=== PATIENT | female | born 1945 | race Hispanic/Latino ===

== ENCOUNTER 2017-09-14 13:57 | Emergency (ER) | payer OTHER ==
--- NOTE | 2017-09-14 15:03 | ER ---
Nurse's Notes [facility] Name: Deysi Lundberg Age: 72 yrs Sex: Female : 1945 Arrival Date: 09/14/2017 Time: 14:02 Bed 26 Private MD: Eduardo Bowling Diagnosis: Gastrointestinal hemorrhage, unspecified-upper;Weakness;End stage renal disease;Anemia, unspecified Presentation: 09/14 14:21 Presenting complaint: Patient states: I have been having dark tarry stools since today, tw2 dialysis told me to come over here and have it checked out, dialysis t/th/sat. Transition of care: patient was not received from another setting of care. Onset of symptoms was September 14, 2017. Risk Assessment: Do you want to hurt yourself or someone else? Patient reports no desire to harm self or others. Initial Sepsis Screen: Does the patient meet any 2 criteria? No. Patient's initial sepsis screen is negative. Does the patient have a suspected source of infection? No. Patient's initial sepsis screen is negative. Care prior to arrival: None. 14:21 Method Of Arrival: Wheelchair tw 14:21 Acuity: JOAO 3 tw2 Historical: - Allergies: 14:28 Morphine; tw2 14:28 Codeine; tw2 14:28 vancomycin; tw2 - Home Meds: 14:28 lactulose 20 gram/30 mL Oral soln 30 mL once daily [Active]; esomeprazole magnesium 40 tw2 mg oral cpDR 1 cap 2 times per day [Active]; Renvela 800 mg oral tab 1 tab 3 times per day [Active]; glipizide 2.5 mg Oral tr24 2 tabs once daily [Active]; Flonase 50 mcg/actuation Nasal spsn 1 spray 2 times per day [Active]; midodrine 5 mg oral tab 2 tabs 3 times per day [Active]; sulfamethoxazole-trimethoprim 800-160 mg Oral tab 1 tab every 6 hours [Active]; - PMHx: 14:28 ESRD; Diabetes - NIDDM; tw2 - PSHx: 14:28 dialysis shunt, LEFT upper arm; tw2 - Immunization history:: Adult Immunizations. - Social history:: Smoking status: Patient/guardian denies using tobacco. - Ebola Screening: : Patient denies travel to an Ebola-affected area in the 21 days before illness onset. - Family history:: not pertinent. Screenin:28 Abuse screen: Denies threats or abuse. Nutritional screening: No deficits noted. tw2 Tuberculosis screening: No symptoms or risk factors identified. Fall Risk Secondary diagnosis (15 points) impaired mobility, blindness. Assessment: 14:13 General: Appears in no apparent distress. slender, Behavior is calm, cooperative, tw2 appropriate for age. Pain: Denies pain. Neuro: Level of Consciousness is awake, alert, obeys commands, Oriented to person, place, time, situation. Cardiovascular: Denies chest pain, shortness of breath, Heart tones S1 S2 Capillary refill < 3 seconds. Respiratory: Airway is patent Respiratory effort is even, unlabored, Respiratory pattern is regular, symmetrical, Breath sounds are clear bilaterally. GI: Parent/caregiver reports the patient having black tarry stools. : No signs and/or symptoms were reported regarding the genitourinary system. EENT: Parent/caregiver reports the patient having pt is blind. Derm: Skin is intact, is thin. 14:53 General: Appears in no apparent distress. comfortable, Behavior is calm, cooperative. rv Pain: Denies pain. Neuro: Level of Consciousness is awake, alert, obeys commands, Oriented to person, place, time, situation. Cardiovascular: Capillary refill < 3 seconds. Respiratory: Airway is patent. GI: Parent/caregiver reports the patient having melena. : No signs and/or symptoms were reported regarding the genitourinary system. EENT: No signs and/or symptoms were reported regarding the EENT system. Derm: Skin is intact. 17:12 Reassessment: Patient appears in no apparent distress at this time. Patient and/or rv family updated on plan of care and expected duration. Pain level reassessed. Patient is alert, oriented x 3, equal unlabored respirations, skin warm/dry/pink. PATIENT IS LYING ON BED COMFORTABLE. ABLE TO MOVE BOWEL, SEMI-FORMED, NON-FOUL SMELLING, BROWN IN COLOR. 17:50 Reassessment: Patient appears in no apparent distress at this time. Patient and/or rv family updated on plan of care and expected duration. Pain level reassessed. Patient is alert, oriented x 3, equal unlabored respirations, skin warm/dry/pink. CALLED IN REPORT TO [facility] [place] [facility] [place] IS RELUCTANT TO BE TRANSFERRED [place] [facility] [place]. AWAITING DECISION OF THE FAMILY. Vital Signs: 14:22 BP 130 / 55; Pulse 85; Resp 17; Temp 97.7(TE); Pulse Ox 98% on R/A; Weight 40.82 kg (R);tw2 17:13 BP 125 / 58; Pulse 66; Resp 12; Pulse Ox 97% on R/A; rv 19:02 BP 143 / 53; Pulse 71; Resp 17; Pulse Ox 97% on R/A; rv ED Course: 14:02 Patient arrived in ED. sb2 14:02 Eduardo Bowling MD is Private Physician. sb2 14:10 Patient's name was called from ER lobby. No response. sv 14:14 Griffin Marcial RN is Primary Nurse. mb3 14:15 Isidro Varma MD is Attending Physician. morris 14:22 Triage completed. tw2 14:28 Bed in low position. Side rails up X2. Adult w/ patient. telemetry monitor on. Pulse ox tw2 on. NIBP on. Warm blanket given. 14:28 Arm band placed on. tw2 14:47 Report given to KRISTEN Hartley. tw2 16:09 XRAY Chest (1 view) In Process Unspecified. EDMS 16:41 Dr. Varma initiated transfer with Nila Lundberg at [facility]. eb 17:[address] Nelson and Dr. Herrera with Dr. Varma for patient transfer consulation.eb 19:04 No provider procedures requiring assistance completed. Patient transferred, IV remains rv in place. intact. Administered Medications: 15:30 Drug: ProTONIX 80 mg Route: IVP; Site: right antecubital; rv 17:14 Follow up: Response: No adverse reaction rv 15:30 Drug: ProTONIX 8 mg/hr Route: IV; Rate: 25 ml/hr; Site: right antecubital; rv 17:14 Follow up: Response: No adverse reaction rv 19:01 Follow up: IV Status: Infusion continued upon transfer rv Point of Care Testing: Blood Glucose: 14:54 Blood Glucose: 140 mg/dL; rv Ranges: Outcome: 15:03 ER care complete, transfer ordered by . morris 19:04 Transferred by ground EMS to [facility]. rv 19:04 Condition: stable 19:04 Discharge instructions given to patient, family, Instructed on the need for transfer. 19:05 Patient left the ED. rv Signatures: Dispatcher [employer] Kelsy Farr, RN RN Isidro Morillo MD MD cha Wise, Tara, RN RN tw2 Liane Crockett2 Soni August Mark RN RN mb3 John Elkins RN RN rv
--- NOTE | 2017-09-14 15:03 | EDPHYS ---
Physician Documentation [facility] Name: Deysi Lundberg Age: 72 yrs Sex: Female : 1945 Arrival Date: 09/14/2017 Time: 14:02 Bed 26 Private MD: Eduardo Bowling ED Physician Isidro Varma HPI: 09/14 14:58 This 72 yrs old Female presents to ER via Wheelchair with complaints of morris Black/Tarry Stools. 14:58 The patient presents to the emergency department with rectal bleeding, a small amount. morris Onset: The symptoms/episode began/occurred today. Abdominal pain: none is appreciated. Modifying factors: The symptoms are alleviated by nothing, the symptoms are aggravated by nothing. Associated signs and symptoms: The patient has no apparent associated signs or symptoms. Severity of symptoms: At their worst the symptoms were mild in the emergency department the symptoms are unchanged. The patient has not experienced similar symptoms in the past. Historical: - Allergies: 14:28 Morphine; tw2 14:28 Codeine; tw2 14:28 vancomycin; tw2 - Home Meds: 14:28 lactulose 20 gram/30 mL Oral soln 30 mL once daily [Active]; esomeprazole magnesium 40 tw2 mg oral cpDR 1 cap 2 times per day [Active]; Renvela 800 mg oral tab 1 tab 3 times per day [Active]; glipizide 2.5 mg Oral tr24 2 tabs once daily [Active]; Flonase 50 mcg/actuation Nasal spsn 1 spray 2 times per day [Active]; midodrine 5 mg oral tab 2 tabs 3 times per day [Active]; sulfamethoxazole-trimethoprim 800-160 mg Oral tab 1 tab every 6 hours [Active]; - PMHx: 14:28 ESRD; Diabetes - NIDDM; tw2 - PSHx: 14:28 dialysis shunt, LEFT upper arm; tw2 - Immunization history:: Adult Immunizations. - Social history:: Smoking status: Patient/guardian denies using tobacco. - Ebola Screening: : Patient denies travel to an Ebola-affected area in the 21 days before illness onset. - Family history:: not pertinent. ROS: 14:58 Constitutional: Negative for fever, chills, and weight loss, Eyes: Negative for injury, morris pain, redness, and discharge, ENT: Negative for injury, pain, and discharge, Neck: Negative for injury, pain, and swelling, Cardiovascular: Negative for chest pain, palpitations, and edema, Respiratory: Negative for shortness of breath, cough, wheezing, and pleuritic chest pain, Back: Negative for injury and pain, : Negative for injury, bleeding, discharge, and swelling, MS/Extremity: Negative for injury and deformity, Skin: Negative for injury, rash, and discoloration, Neuro: Negative for headache, weakness, numbness, tingling, and seizure, Psych: Negative for depression, anxiety, suicide ideation, homicidal ideation, and hallucinations, Allergy/Immunology: Negative for hives, rash, and allergies, Endocrine: Negative for neck swelling, polydipsia, polyuria, polyphagia, and marked weight changes. 14:58 Abdomen/GI: Positive for black/tarry stool. Exam: 14:58 Constitutional: This is a well developed, well nourished patient who is awake, alert, morris and in no acute distress. Head/Face: Normocephalic, atraumatic. Eyes: Pupils equal round and reactive to light, extra-ocular motions intact. Lids and lashes normal. Conjunctiva and sclera are non-icteric and not injected. Cornea within normal limits. Periorbital areas with no swelling, redness, or edema. ENT: Nares patent. No nasal discharge, no septal abnormalities noted. Tympanic membranes are normal and external auditory canals are clear. Oropharynx with no redness, swelling, or masses, exudates, or evidence of obstruction, uvula midline. Mucous membranes moist. Neck: Trachea midline, no thyromegaly or masses palpated, and no cervical lymphadenopathy. Supple, full range of motion without nuchal rigidity, or vertebral point tenderness. No Meningismus. Chest/axilla: Normal chest wall appearance and motion. Nontender with no deformity. No lesions are appreciated. Cardiovascular: Regular rate and rhythm with a normal S1 and S2. No gallops, murmurs, or rubs. Normal PMI, no JVD. No pulse deficits. Respiratory: Lungs have equal breath sounds bilaterally, clear to auscultation and percussion. No rales, rhonchi or wheezes noted. No increased work of breathing, no retractions or nasal flaring. Back: No spinal tenderness. No costovertebral tenderness. Full range of motion. Female : Normal external genitalia. Skin: Warm, dry with normal turgor. Normal color with no rashes, no lesions, and no evidence of cellulitis. MS/ Extremity: Pulses equal, no cyanosis. Neurovascular intact. Full, normal range of motion. Neuro: Awake and alert, GCS 15, oriented to person, place, time, and situation. Cranial nerves II-XII grossly intact. Motor strength 5/5 in all extremities. Sensory grossly intact. Cerebellar exam normal. Normal gait. Psych: Awake, alert, with orientation to person, place and time. Behavior, mood, and affect are within normal limits. 14:58 Abdomen/GI: Inspection: bruising, Bowel sounds: normal, Palpation: nontender, Rectal exam: Stool: guaiac positive, black, Liver: no appreciated palpable abnormalities, Hernia: not appreciated. Vital Signs: 14:22 BP 130 / 55; Pulse 85; Resp 17; Temp 97.7(TE); Pulse Ox 98% on R/A; Weight 40.82 kg (R);tw2 17:13 BP 125 / 58; Pulse 66; Resp 12; Pulse Ox 97% on R/A; rv 19:02 BP 143 / 53; Pulse 71; Resp 17; Pulse Ox 97% on R/A; rv MDM: 14:15 Patient medically screened. [facility] 14:58 Data reviewed: vital signs, nurses notes, lab test result(s), EKG, radiologic studies, morris plain films. 09/14 14:58 Order name: Basic Metabolic Panel; Complete Time: 16:27 [facility] 09/14 14:58 Order name: CBC with Diff [facility] 09/14 14:58 Order name: Ckmb; Complete Time: 16:27 [facility] 09/14 14:58 Order name: CPK; Complete Time: 16:27 [facility] 09/14 14:58 Order name: LFT's; Complete Time: 16:27 [facility] 09/14 14:58 Order name: Magnesium; Complete Time: 16:27 [facility] 09/14 14:58 Order name: NT PRO-BNP; Complete Time: 16:27 [facility] 09/14 14:58 Order name: PT-INR; Complete Time: 16:27 [facility] 09/14 14:58 Order name: Ptt, Activated; Complete Time: 16:27 [facility] 09/14 14:58 Order name: Troponin (emerg Dept Use Only); Complete Time: 16:27 [facility] 09/14 14:58 Order name: Lipase; Complete Time: 16:27 [facility] 09/14 14:58 Order name: Type And Screen [facility] 09/14 14:59 Order name: Glucose, Ancillary Testing; Complete Time: 15:19 [facility] 09/14 14:58 Order name: XRAY Chest (1 view) [facility] 09/14 14:58 Order name: EKG; Complete Time: 14:58 [facility] 09/14 14:58 Order name: Cardiac monitoring; Complete Time: 15:35 [facility] 09/14 14:58 Order name: EKG - Nurse/Tech; Complete Time: 15:36 [facility] 09/14 14:58 Order name: IV Saline Lock; Complete Time: 15:36 [facility] 09/14 14:58 Order name: Labs collected and sent; Complete Time: 15:36 [facility] 09/14 14:58 Order name: O2 Per Protocol; Complete Time: 15:36 [facility] 09/14 14:58 Order name: O2 Sat Monitoring; Complete Time: 15:36 [facility] 09/14 14:58 Order name: Urine Dipstick-Ancillary (obtain specimen) [facility] 09/14 15:55 Order name: CBC Smear Scan EDDE Administered Medications: 15:30 Drug: ProTONIX 80 mg Route: IVP; Site: right antecubital; rv 17:14 Follow up: Response: No adverse reaction rv 15:30 Drug: ProTONIX 8 mg/hr Route: IV; Rate: 25 ml/hr; Site: right antecubital; rv 17:14 Follow up: Response: No adverse reaction rv 19:01 Follow up: IV Status: Infusion continued upon transfer rv Point of Care Testing: Blood Glucose: 14:54 Blood Glucose: 140 mg/dL; rv Ranges: Critical Glucose Levels:Adult <50 mg/dl or >400 mg/dl <40 mg/dl or >180 mg/dl Disposition: 09/14/17 15:03 Transfer ordered to [facility]. Diagnosis are Gastrointestinal hemorrhage, unspecified - upper, Weakness, End stage renal disease, Anemia, unspecified. - Reason for transfer: Higher level of care. - Accepting physician is TO TELE . - Condition is Fair. - Problem is new. - Symptoms have improved. Signatures: Dispatcher [employer] EDDE Isidro Varma MD MD cha Wise, Tara RN RN tw2 John Elkins RN RN rv Corrections: (The following items were deleted from the chart) 17:01 15:03 09/14/2017 15:03 Transfer ordered to [facility]. Diagnosis is morris Gastrointestinal hemorrhage, unspecified - upper; Weakness; End stage renal disease. Reason for transfer: Higher level of care. Accepting physician is TO TELE . Condition is Fair. Problem is new. Symptoms have improved. morris 19:05 17:01 09/14/2017 15:03 Transfer ordered to [facility]. Diagnosis is rv Gastrointestinal hemorrhage, unspecified - upper; Weakness; End stage renal disease; Anemia, unspecified. Reason for transfer: Higher level of care. Accepting physician is TO TELE . Condition is Fair. Problem is new. Symptoms have improved. morris
[2017-09-14] MEDS ORDERED: PANTOPRAZOLE 40 MG INJ ONE (15:32)
[2017-09-14] MEDS ORDERED: NA CHLORIDE 0.9% 250 ML ONE (15:32)
[2017-09-14 15:37] LABS: Absolute Lymphocytes (CBC) 0.9 K/uL (0.7-4.9); Absolute Monocytes 0.3 K/uL (0.1-1.3); Basophils % 0.8 % (0-1.3); Eosinophils % 2.6 % (0-4.4); Hematocrit 31.8 % (36.0-45.0); Lymphocytes % 26.4 % (15.3-44.8); MCH 32.2 pg (27.0-35.0); MCV 95.2 fL (80-100); Monocytes % 9.6 % (3.3-12.3); RBC Red Blood Cell Count 3.34 M/uL (3.86-4.86)
[2017-09-14 15:40] LABS: Protime INR 1.06
[2017-09-14 15:58] LABS: Albumin 2.4 g/dL (3.4-5.0); Bilirubin Direct 0.3 mg/dL (0-0.2); Bilirubin Total 0.6 mg/dL (0.2-1.0); CKMB Creatine Kinase MB 2.5 ng/mL (0.3-3.6); Magnesium 2.6 mg/dL (1.8-2.4); Potassium 3.3 mmol/L (3.5-5.1); Protein, Total 7.8 g/dL (6.4-8.2)
--- NOTE | 2017-09-14 17:11 | RAD REPORT ---
EXAM DESCRIPTION: RAD - Chest Single View - 09/14/2017 4:09 pm CLINICAL HISTORY: Cough, shortness of breath COMPARISON: None. TECHNIQUE: AP portable chest image was obtained 1557 hours . FINDINGS: Cardiac silhouette is enlarged with mild vascular engorgement. Interstitial markings are p rominent. No large mass or consolidation. There is some patchy airspace disease in the right lung bas e. Baseline for the patient is unknown. Trachea is midline. No measurable pleural effusion and no pne umothorax. No gross bony abnormality seen. No acute aortic findings suspected. IMPRESSION: Baseline study showing patchy right base opacification. Minimal pneumonia is possible if there are matching clinical findings. Cardiomegaly is present. No significant failure or volume overload.
[2017-09-14 17:15] LABS: Blood Morphology Comment NOT SEEN (NOT SEEN); Platelet Estimate DECR; Urine White Blood Cell Casts OK
--- NOTE | 2017-09-15 09:31 | EKG ---
Test Date: 2017-09-14 Test Time: 15:23:03 Bench Hand Machine: MEASUREMENT RESULTS: Intervals: Rate: 70 AL: 170 QRSD: 170 QT: 498 QTc: 537 [place]: P: 46 AL: 170 QRS: 126 T: -30 INTERPRETIVE STATEMENTS: Normal sinus rhythm Nonspecific intraventricular block Abnormal ECG No previous ECG available for comparison Electronically Signed On 09-15-17 09:28:09 CDT by Reed Sumner
== END 2017-09-14 19:05 | disposition short-term general hospital (02) ==
LOC: ER 13:57
DX: D64.9 Anemia, unspecified (principal); R53.1 Weakness; N18.6 End stage renal disease; E11.22 Type 2 diabetes mellitus with diabetic chronic kidney disease; Z99.2 Dependence on renal dialysis; Z88.3 Allergy status to other anti-infective agents; Z88.5 Allergy status to narcotic agent
CPT/HCPCS: 36415; 71045; 80048; 80076; 82550; 82553; 82962; 83690; 83735; 83880; 84484; 85025; 85610; 85730; 86850; 86900; 86901; 93005; 96365; 96366; 99285; C9113